=== PATIENT | male | born 1965 | race Two or more races ===

== ENCOUNTER 2017-10-18 07:18 | Day surgery (SDC) | payer OTHER ==
[2017-10-18] MEDS ORDERED: PROPOFOL 40 ML (08:59)
[2017-10-18] MEDS ORDERED: LIDOCAINE 100 MG SYRINGE (08:59)
== END 2017-10-18 11:06 | disposition home or self-care (01) ==
LOC: GIL 07:18
DX: Z12.11 Encounter for screening for malignant neoplasm of colon (principal); K29.50 Unspecified chronic gastritis without bleeding; D12.6 Benign neoplasm of colon, unspecified; K64.4 Residual hemorrhoidal skin tags
CPT/HCPCS: 43239; 88305; 88312